=== PATIENT | female | born 1940 | race Caucasian/White ===

== ENCOUNTER 2017-01-16 11:53 | Emergency (ER) | payer MEDICARE ==
[~2017-01-16] VITALS: Ht 156.2 cm; Wt 64.5 kg
[2017-01-16 12:01] VITALS: BP 180/85; PULSE 55; RESP 15; O2SAT 99
--- NOTE | 2017-01-16 12:11 | ED.REPORT ---
HPI-Abd Pain F 40 and Over Date of Service Jan 16, 2017 ED Provider: Rosaline Goodman Patient is a 76 year old female with a hx of frequent UTI's and previous kidney stone who presents to the ED complaining of intermittent L flank pain (5/10 in severity) that radiates toward her abdomen onset 2 hours ago. Associated symptoms include nausea and chills. She denies dysuria, hematuria, vaginal discharge, fever, vomiting, or any other symptoms. Patient reports this feels similar to her previous kidney stone. Nursing Notes Stated Complaint: ABDOMINAL PAIN Chief Complaint: Female Abdominal Pain Nursing Notes Reviewed: Yes Allergies: Coded Allergies: No Known Allergies (Unverified , 01/16/17) Scheduled Estrogens Conjugated (Premarin) 1 Gm Vagcream 0.5 GM VG DAILY small amt cream to tissue around urethra nightly Sulfamethoxazole/Trimeth 800-160 mg (Bactrim DS) 1 Each Tablet 1 TABLET PO BID General Time Seen by MD: 12:11 Chief Complaint Flank pain left Hx Obtained From: Patient Arrived By: Walk-in Sudden in Onset?: Yes Onset Occurred: 1 - 4 hours ago Symptom Duration: Since onset Similar Sx Previous: Yes Risk Factors )( AAA Risk Stratification HypertensionNo Marfan's syndrome Risk factors reviewed Past Medical History Past Medical History Notes: PCP Enrrique Past Medical History HTN Frequent UTI colitis Gallbladder and liver currently being treated naturopathically. Reports: Thyroid disease Past Surgical History Reports: Cholecystectomy Smoking History Unknown if Ever Smoker Social History Other Social History: Good social support, Ambulatory Status Independent Review of Systems +L flank tenderness Constitutional: Reports: Chills, Denies: Fever GI: Reports: Abdominal pain, Nausea, Denies: Vomiting Female: Denies: Dysuria, Hematuria, Vaginal bleeding - abnl, Vaginal discharge Complete sys rev & neg: except as marked. Physical Exam Vital Signs Vital Signs (First) Date Time Temp Pulse Resp B/P Pulse Ox O2 Delivery O2 Flow Rate FiO2 01/16/17 12:01 36.4 55 15 180/85 99 Room Air Initial VS: Reviewed, Vital signs abnormal Head / Eyes: Atraumatic, Normocephalic Neck: Full range of motion Skin: Warm, Dry Neurologic: Alert, Oriented, Nonfocal Psychiatric: Mood/affect normal, Behavior normal, Normal thought content General/Constitutional: Awake, Alert, No acute distress Respiratory / Chest: Breath sounds NL, Breath sounds = bilat, No respiratory distress Cardiovascular: Heart rate NL Abdomen: Atraumatic, Soft Mild LLQ and superpubic tend Back: No CVA tenderness Interpretation & Diagnostics Lab Results Interpretation Test 01/16/17 12:10 Urine Color Yellow (YELLOW) Urine Appearance Clear (CLEAR,HAZY) Urine pH 6.0 (5.0-8.0) Urine Specific [place] 1.025 (1.003-1.035) Urine Protein Negativemg/dL (NEG,TRACE) Urine Glucose (UA) Negativemg/dL (NEGATIVE) Urine Ketones Negativemg/dL (NEGATIVE) Urine Occult Blood Negative (NEGATIVE) Urine Nitrite Negative (NEGATIVE) Urine Bilirubin Negative (NEGATIVE) Urine Urobilinogen Normalmg/dL (NORMAL) Urine Leukocyte Esterase Small (NEGATIVE) Urine RBC 0-2/hpf (0-2) Urine WBC 0-5/hpf (0-5) Urine Epithelial Cells Moderate/hpf (NONE-MOD) Urine Crystals None seen (NONE SEEN) Urine Bacteria Few/hpf (NONE-FEW) Urine Hyaline Casts None/lpf (NONE) Urine Granular Casts None seen (NONE SEEN) Urine Waxy Casts None seen (NONE SEEN) Urine Red Blood Cell Casts None seen (NONE SEEN) Urine White Blood Cell Casts None seen (NONE SEEN) Urine Mucus None seen (None Seen) Urine Trichomonas None seen (NONE SEEN) Urine Yeast None (NONE SEEN) Urinalysis Comment None Urine Culture Reflexed Indicated Re-Eval/Medical Decision Re-Evaluation/Progress #1: Time of Eval: 13:06 )( Re-Eval Abdomen: Soft Re-Evaluation/Progress Note: Rechecked patient whose pain is now only a 2/10. Re-Evaluation/Progress #2: Time of Eval: 13:16 )( Re-Eval Abdomen: Soft Re-Evaluation/Progress Note: Discussed plan for discharge. Patient understands and agrees with plan. All questions addressed at this time. Counseled Regarding: Diagnosis, Lab results, Need for follow-up, When/why to return to ED Discharge & Departure Primary Impression: UTI (urinary tract infection) Urinary tract infection type: site unspecified Hematuria presence: with hematuria Qualified Code: N39.0 - Urinary tract infection, site not specified Disposition: Home Discharge Condition All VS Reviewed: Yes Condition: Improved Patient Instructions: Urinary Tract Infection in Women (ED) Additional Instructions: It looks like you do have a bladder infection and we caught it early. Please complete 7 days of Septra DS am and pm As you have had so many UTIs this year, you may benefit from some topical estrogen to the opening of your urethra. I'm going to give you a prescription for premarin cream. Use a small dollop of cream nightly to the skin around your urethra (bladder opening). this tissue is quite responsive to estrogren and being a bit more "plump" helps prevent bacteria from getting into and up the urethra. I hope you feel better. Referrals: OTHER,PHYSICIAN Scribe Attestation Portions of this note were transcribed by Supriya Fernandez. I, Dr. Goodman personally performed the history, physical exam and medical decision-making; I reviewed and confirmed the accuracy of the information in the transcribed note. Signed by: Mike Lazo, 01/16/17 at 1316 Rosaline Goodman MD Jan 16, 2017 12:11 SUPRIYA FERNANDEZ Jan 16, 2017 13:06
[2017-01-16 12:53] LABS: APPEARANCE,URINE CLEAR (CLEAR,HAZY); COLOR,URINE YELLOW (YELLOW)
[2017-01-16 12:54] LABS: OCCULT BLOOD,URINE NEGATIVE (NEGATIVE); UROBILINOGEN,URINE NORMAL (NORMAL)
[2017-01-16] MEDS ORDERED: SULF1TAB7 PO (13:14)
[2017-01-16] MEDS ORDERED: PREC VG (13:14)
== END 2017-01-16 13:31 | disposition home or self-care (01) ==
LOC: SED 11:53
DX: N39.0 Urinary tract infection, site not specified (principal); I10 Essential (primary) hypertension